=== PATIENT | male | born 1985 | race Two or more races ===

== ENCOUNTER 2022-10-30 11:31 | Emergency (ER) | payer OTHER ==
[~2022-10-30] VITALS: Ht 162.6 cm; Wt 59.0 kg
== END 2022-10-30 16:42 | disposition home or self-care (01) ==
LOC: ER 11:31
DX: S83.92XA Sprain of unspecified site of left knee, initial encounter (principal); X58.XXXA Exposure to other specified factors, initial encounter; Y93.9 Activity, unspecified; Y92.9 Unspecified place or not applicable; Y99.8 Other external cause status